=== PATIENT | female | born 2005 | race African-American/Black ===

== ENCOUNTER 2023-10-15 13:34 | Outpatient (OUT) | payer MEDICAID, SELFPAY ==
--- NOTE | 2023-10-15 13:36 | US_ITS ---
[address] [address] Patient Name: CHAD DOWNING MRN: [id number] date: 2005 Sex: F Assigned Patient Location: Current Patient Location: Accession/Order Number: [id number] Exam Date: 10/15/2023 13:36 Report Date: 10/15/2023 15:48 At the request of: KAUR MONAHAN Procedure: US OB growth EXAMINATION: US OB growth HISTORY: IUGR COMPARISON: No relevant comparison available. FINDINGS: Heart Rate: 140.0 bpm Number: 1.0 Position: CEPHALIC Amniotic Fluid Volume: 13.3 cm Maximum Vertical Pocket: 4.8 cm BIOMETRY: BPD: 8.6 cm cm; 34 weeks 4 days; 56% HC: 31.0 cmcm; 34 weeks 5 days ; 23% AC: 30.1 cm cm; 34 weeks 0 days; 48% FL: 6.6 cm cm; 34 weeks 1 days; 38% EFW: 2372.1 grams; 41% FL/AC: 22.1 FL/BPD: 77.6 HC/AC: 1.0 GESTATIONAL AGE: Age by EDC: 34 weeks 2 days ASHWINI by EDC: 11/24/2023 Age by US: 34 weeks 3 days ASHWINI by US: 11/23/2023 US/US OB growth IMPRESSION: 1. Single live intrauterine with growth detailed above. Electronically authenticated by: NALINI MAHARAJ Date: 10/15/2023 15:48
== END 2023-10-15 13:35 | disposition home or self-care (01) ==
LOC: US 13:35
PROVIDERS: Visit Provider Obstetrics & Gynecology
DX: O26.843 Uterine size-date discrepancy, third trimester (principal); Z3A.34 34 weeks gestation of pregnancy
CPT/HCPCS: 76816

== ENCOUNTER 2023-10-29 20:09 | Outpatient (REF) | payer MEDICAID, SELFPAY | END 2023-10-29 20:10 | disposition home or self-care (01) | LOC: LAB 20:09 | PROVIDERS: Visit Provider Physician Assistant | DX: Z34.93 Encounter for supervision of normal pregnancy, unspecified, third trimester (principal) | CPT/HCPCS: 87081 ==

== ENCOUNTER 2023-10-31 22:35 | Observation (INO) | payer MEDICAID, SELFPAY ==
[2023-10-31 22:50] VITALS: BP 106/68; PULSE 100
[2023-10-31 23:01] LABS: Bilirubin Urine NEGATIVE (NEGATIVE); Blood Urine NEGATIVE (NEGATIVE); Clarity Urine CLEAR (CLEAR); Color Urine LT. YELLOW (YELLOW); Glucose Urine UA NEGATIVE (NEGATIVE); Ketones Urine NEGATIVE (NEGATIVE); Leukocyte Esterase Urine SMALL (NEGATIVE); Nitrite Urine NEGATIVE (NEGATIVE); Protein Urine NEGATIVE (NEG/TRACE); Specific Gravity Urine <=1.005 (1.005-1.025); Urobilinogen Urine 0.2 EU/dL (0.2-1.0)
[2023-10-31 23:03] LABS: Urine Microscopic Indicated YES
[2023-10-31 23:09] LABS: Bacteria Urine MODERATE #/HPF (NONE SEEN); Cast Seen? NONE SEEN #/LPF (NONE SEEN); Crystals Seen? None Seen #/HPF (None Seen); Mucus Urine NONE SEEN (NONE SEEN); Squamous Epithelial Cell Urine MODERATE #/LPF (NONE/RARE); Urine Culture Indicated YES
[2023-11-01] MEDS: ZOLPIDEM TARTRATE 5 MG TABLET PO (02:45)
[2023-11-01 02:55] VITALS: BP 108/76; PULSE 88
[2023-11-01 06:05] VITALS: RESP 16; TEMP 37.2
--- NOTE | 2023-11-01 07:35 | W.PC.ACHO ---
Registration Status: ADM LAUREANO Primary Language: Armenian Preferred Language: Armenian Report received from Leslie Victor RN. Active Medications Generic Name Dose Route Start Last Admin Trade Name Freq PRN Reason Stop Dose Admin Zolpidem Tartrate 5 mg 10/31/23 23:29 11/01/23 02:45 Zolpidem Tartrate 5 Mg Tablet PO 5 mg HS PRN Administration Sleep Neurology Patient orientation (short person,place,time,situation list)
[2023-11-01 09:05] VITALS: RESP 16
[2023-11-01 09:08] VITALS: BP 110/69; PULSE 89; TEMP 36.6
== END 2023-11-01 12:27 | disposition home or self-care (01) ==
PROVIDERS: Admitting Provider Obstetrics & Gynecology; Visit Provider Obstetrics & Gynecology
DX: O26.893 Other specified pregnancy related conditions, third trimester (principal); M54.9 Dorsalgia, unspecified; Z3A.36 36 weeks gestation of pregnancy
CPT/HCPCS: 59025; 81001; 87086; G0378; G0379

== ENCOUNTER 2023-11-06 00:11 | Inpatient (IN) | payer MEDICAID, SELFPAY ==
[2023-11-05 16:52] VITALS: BP 122/72; PULSE 100
[2023-11-05 16:53] VITALS: BP 112/73; PULSE 92
[2023-11-05 17:18] LABS: Bilirubin Urine NEGATIVE (NEGATIVE); Blood Urine NEGATIVE (NEGATIVE); Clarity Urine CLEAR (CLEAR); Color Urine LT. YELLOW (YELLOW); Glucose Urine UA NEGATIVE (NEGATIVE); Ketones Urine 15 mg/dL (NEGATIVE); Leukocyte Esterase Urine TRACE (NEGATIVE); Nitrite Urine NEGATIVE (NEGATIVE); Protein Urine NEGATIVE (NEG/TRACE); Urine Microscopic Indicated YES; Urobilinogen Urine 0.2 EU/dL (0.2-1.0); pH Urine 6.5 (5.0-9.0)
[2023-11-05 17:23] LABS: Bacteria Urine NONE SEEN #/HPF (NONE SEEN); Cast Seen? NONE SEEN #/LPF (NONE SEEN); Crystals Seen? None Seen #/HPF (None Seen); Mucus Urine NONE SEEN (NONE SEEN); RBC Urine NONE SEEN #/HPF (0-2); Squamous Epithelial Cell Urine MODERATE #/LPF (NONE/RARE); Urine Culture Indicated NO; WBC Urine 0-2 #/HPF (NONE SEEN)
[2023-11-05 18:42] VITALS: RESP 16; TEMP 36.9
[2023-11-05 19:41] VITALS: BP 99/64; PULSE 82
--- NOTE | 2023-11-05 20:14 | W.PC.ACHO ---
Registration Status: REG OUT Primary Language: Preferred Language: Report received from Leslie Desai RN.
[2023-11-06] VITALS (74 sets, daily range): BP systolic 87–141; BP diastolic 50–97; PULSE 69–129; RESP 8–24; TEMP 36.1–36.6; O2SAT 98–100
[2023-11-06 00:53] LABS: Amphetamine Screen Urine NEGATIVE (NEGATIVE); Barbiturates Screen Urine NEGATIVE (NEGATIVE); Benzodiazepines Screen Urine NEGATIVE (NEGATIVE); Buprenorphine Screen Urine NEGATIVE (NEGATIVE); Cannabinoid Screen Urine NEGATIVE (NEGATIVE); Cocaine Screen Urine NEGATIVE (NEGATIVE); Methadone Screen Urine NEGATIVE (NEGATIVE); Methamphetamines Screen Urine NEGATIVE (NEGATIVE); Opiate Screen Urine NEGATIVE (NEGATIVE); Oxycodone Screen Urine NEGATIVE (NEGATIVE); Phencyclidine Screen Urine NEGATIVE (NEGATIVE); Tricyclic Antidepressant Urine NEGATIVE (NEGATIVE)
[2023-11-06 02:11] LABS: Hematocrit 30.5 % (36.0-48.0); Hemoglobin 9.6 g/dL (12.0-16.0); Mean Corpuscular HGB Conc 31.5 g/dL (29.9-35.2); Mean Corpuscular Hemoglobin 23.5 pg (26.7-34.0); Mean Corpuscular Volume 74.8 fL (81.0-99.0); Mean Platelet Volume 10.3 fL (9.5-13.5); Platelet Count 334 10^3/uL (150-450); Red Blood Count 4.08 10^6/uL (4.20-5.40); Red Cell Distribution Width 15.9 % (11.0-15.0); White Blood Count 14.4 10^3/uL (4.0-11.0)
--- NOTE | 2023-11-06 07:31 | W.PC.ACHO ---
Registration Status: ADM IN Primary Language: Vincentian Preferred Language: Vincentian Report given to Uday Gunn RN. Active Medications Generic Name Dose Route Start Last Admin Trade Name Freq PRN Reason Stop Dose Admin Carboprost Tromethamine 250 mcg 11/06/23 00:24 Carboprost Tromethamine 250 Mcg/Ml 1 Ml Vial IM 11/08/23 00:24 Q15M PRN Bleeding Sodium Chloride 1,000 mls @ 125 mls/hr 11/06/23 00:30 Sodium Chloride 0.9% 1,000 Ml IV .Q8H MARYANNE Oxytocin/Sodium Chloride 20 units in 1,000 mls @ 125 mls/hr 11/06/23 00:30 Pitocin 20 Unit/1,000 Ml-Ns IV 11/06/23 08:29 Q8H MARYANNE Lidocaine 1 ml 11/06/23 00:24 Lidocaine Hcl 1% 200 Mg/20 Ml Mdv INJ ONCE PRN Pain Lidocaine 5 ml 11/06/23 00:24 Lidocaine Viscous 2% 15 Ml Solution TOPICAL ONCE PRN Pain Methylergonovine Maleate 0.2 mg 11/06/23 00:24 Methylergonovine Maleate 0.2 Mg/Ml Ampule IM 11/08/23 00:24 ONCE PRN Uterine Contractility/Contract Methylergonovine Maleate 0.2 mg 11/06/23 00:24 Methylergonovine Maleate 0.2 Mg Tablet PO 11/08/23 00:24 Q4H PRN Uterine Contractility/Contract Misoprostol 600 mcg 11/06/23 00:24 Misoprostol 100 Mcg Tablet PO 11/08/23 00:24 ONCE PRN Uterine Bleeding Misoprostol 800 mcg 11/06/23 00:24 Misoprostol 100 Mcg Tablet SL 11/08/23 00:24 ONCE PRN Uterine Bleeding Misoprostol 1,000 mcg 11/06/23 00:24 Misoprostol 100 Mcg Tablet AR 11/08/23 00:24 ONCE PRN Uterine Bleeding Ondansetron HCl 4 mg 11/06/23 00:24 Ondansetron Pf 4 Mg/2 Ml Vial IV Q6H PRN Nausea And Vomiting Ondansetron HCl 4 mg 11/06/23 00:24 Ondansetron 4 Mg Rapdis Tablet SL Q6H PRN Nausea And Vomiting Oxytocin 10 unit 11/06/23 00:24 Oxytocin 10 Unit/Ml Vial IM 11/08/23 00:24 ONCE PRN Bleeding Diet Category Date Time Status Regular Consistency Diet Diet 11/06/23 00:26 Active Consults Category Date Time Status Consult to Anesthesiology Routine Cons 11/06/23 Ordered Consult to Metal Bonding Helper Routine Cons 11/06/23 Ordered IV Insertion/Site Date of IV Line Insertion [ 11/06/23 Short PIV (<1.75 in) 20g left Hand] IV Insertion Time [Short PIV ( 00:45 <1.75 in) 20g left Hand] Neurology Patient orientation (short person,place,time,situation list) Respiratory Oxygen Delivery Method Room Air
[2023-11-06] MEDS: 0.9 % SODIUM CHLORIDE 1,000 ML 125 ML IV ×3 (07:50→18:18)
[2023-11-06] MEDS: FENTANYL CITRATE/PF 100 MCG/2 ML VIAL EPIDURAL ×2 (10:09)
[2023-11-06] MEDS: LIDOCAINE HCL 2% PF 100 MG/5 ML VIAL INJ (10:10)
[2023-11-06] MEDS: ROPIVACAINE HCL/PF 400 MG/200 ML PREMIX 6 MG EPIDURAL (10:10)
[2023-11-06] MEDS: OXYTOCIN 10 UNIT in 0.9 % SODIUM CHLORIDE 500 ML 6.012 UNIT IV (12:10)
[2023-11-06] MEDS: CITRIC ACID/SODIUM CITRATE 30 ML SOLUTION ORACIT SHOHL'S SOLN PO (19:49)
[2023-11-06] MEDS: FAMOTIDINE/PF 20 MG/2 ML VIAL IV (19:50)
[2023-11-06] MEDS: CEFAZOLIN SODIUM/DEXTROSE,ISO 2 GM/50 ML PIGGYBACK IV (20:13)
--- NOTE | 2023-11-06 21:14 | PM.ONB ---
Brief Operative Note Date of procedure: 11/06/23 Pre-op diagnosis: iup at 37wks, active labor, failure to dilate, failure to descend, cpd Post-op diagnosis: same as pre-op Procedure: NAME OF PROCEDURE: [ section ] PROCEDURE: Patient was taken back to the Operating Room where she was given a spinal anesthesia with Duramorph without difficulty. She was prepped and draped in the normal sterile fashion. A Pfannenstiel skin incision was then made 2 cm above the symphysis pubis and carried down to underlying rectus fascia using a Bovie. The fascia was incised in the midline and extended laterally using Basurto scissors. Two Olivia clamps were placed on the superior aspect of the fascia and dissected off the underlying rectus muscles. The same was performed on the inferior aspect as well. The muscles were then in the midline. Peritoneum was identified and entered bluntly. The peritoneum was then extended superiorly and inferiorly with good visualization of the bladder. The bladder blade was inserted. A low transverse incision was made on the patient's uterus and extended laterally digitally. The infant was then delivered atraumatically after the bladder blade was removed in the cephalic position. The cord was clamped and cut. Cord blood was obtained. The infant was handed off to awaiting team. The patient's placenta was spontaneously delivered. The uterus was then exteriorized. The uterus was cleared of all clots and debris. The bladder blade was reinserted. The patient's uterine incision was closed using #0 Vicryl in a running lock fashion. Excellent hemostasis was assured. The uterus was then returned to the patient's abdomen. The patient's abdomen was copiously irrigated using warm saline. Peritoneal gutters were cleared of all clots and debris. Again excellent hemostasis was assured. The patient's peritoneum was closed using 3-0 Vicryl in a running fashion. The patient's fascia was closed using #0 Vicryl in a running fashion. The patient's skin was closed using 4-0 Vicryl subcuticularly. The patient tolerated the procedure well. Sponge, lap, and needle counts were correct x2. The patient was taken to the Recovery Room in stable condition. Anesthesia: ARLEEN Surgeon: Vinny Sandoval Barrel Liner: Sharlene Wheeler Estimated blood loss (mL): 575 Pathology: none sent Condition: stable Disposition: PACU Urinary Catheter Management Urinary Catheter Management Urethral: Cath placed during this visit: yes Urethral indwelling: No Insertion date: 11/06/23 Insertion time: 10:45
--- NOTE | 2023-11-06 21:15 | PM.OBPRCCS ---
Procedure Pre-op/Post-op diagnoses: Pre-Op/Post-Op Diagnoses Operation Date: 11/06/23 17:45 <No data on this case meets the specified criteria> Procedure: Procedures Operation Date: 11/06/23 17:45 Actual Procedure Side Surgeon p Not Applicable Vinny Sandoval DO Logging Specialist: Sharlene Wheeler Estimated blood loss (mL): 575 Disposition: floor Anesthesia type: Epidural
[2023-11-06] MEDS: LACTATED RINGER'S SOLUTION 1,000 ML 50 ML IV (21:20)
[2023-11-06] MEDS: OXYTOCIN/0.9 % SODIUM CHLORIDE 20 UNITS/1,000 ML PLAST..BAG 125 UNIT IV (21:39)
--- NOTE | 2023-11-06 21:52 | PC.NURSE ---
with paslpation of fundus causes pain to elevate a bit but calms down after palpating
[2023-11-07] VITALS (7 sets, daily range): BP systolic 100–133; BP diastolic 63–78; PULSE 76–78; RESP 14–16; TEMP 36.2–37.2
--- NOTE | 2023-11-07 01:15 | PC.NURSE ---
Jaky-care performed and linens changed at this time.
[2023-11-07] MEDS: CEFAZOLIN SODIUM/DEXTROSE,ISO 2 GM/50 ML PIGGYBACK IV (02:01)
[2023-11-07] MEDS: KETOROLAC TROMETHAMINE 30 MG/ML VIAL IVP ×2 (03:11→12:48)
--- NOTE | 2023-11-07 06:00 | W.PC.ACHO ---
Registration Status: ADM IN Primary Language: Citizen Of [place] Preferred Language: Citizen [place] Report given to Uday Gunn RN. Active Medications Generic Name Dose Route Start Last Admin Trade Name Freq PRN Reason Stop Dose Admin Al Hydroxide/Mg Hydroxide 2,400 mg 11/06/23 21:16 Magnesium Hydroxide 2,400 Mg/10 Ml Oral.Susp PO Q6H PRN Dyspepsia Carboprost Tromethamine 250 mcg 11/06/23 00:24 Carboprost Tromethamine 250 Mcg/Ml 1 Ml Vial IM 11/08/23 00:24 Q15M PRN Bleeding Diphenhydramine HCl 25 mg 11/06/23 21:16 Diphenhydramine Hcl 50 Mg/Ml (1ml) Vial IV 11/07/23 21:17 Q6H PRN Itching Docusate Sodium 100 mg 11/07/23 09:00 Docusate Sodium 100 Mg Capsule PO BID MARYANNE Ephedrine Sulfate 5 mg 11/06/23 08:01 Ephedrine Sulfate 50 Mg/Ml Vial IV 11/07/23 08:01 Q5M PRN Blood Pressure - Low Fentanyl Citrate 100 mcg 11/06/23 08:01 11/06/23 10:09 Fentanyl Citrate/Pf 100 Mcg/2 Ml Vial EPIDURAL 100 mcg ONCE PRN Administration epidural Fentanyl Citrate 100 mcg 11/06/23 08:01 11/06/23 10:09 Fentanyl Citrate/Pf 100 Mcg/2 Ml Vial EPIDURAL 100 mcg ONCE PRN Administration epidural Ropivacaine/Sodium Chloride 400 mg in 200 mls @ 6 mls/hr 11/06/23 08:15 11/06/23 10:10 Naropin 0.2% 400 Mg/200 Ml Bag EPIDURAL 6 mls/hr Q24H MARYANNE Administration Oxytocin 10 unit/ Sodium 501 mls @ 6.012 mls/hr 11/06/23 12:00 11/06/23 19:35 Chloride IV 0 milliunit/min Q24H MARYANNE 0 mls/hr Infusion 2 MILLIUNIT/MIN Sodium Chloride 1,000 mls @ 125 mls/hr 11/06/23 21:30 Sodium Chloride 0.9% 1,000 Ml IV .Q8H MARYANNE Lactated Ringer's 1,000 mls @ 50 mls/hr 11/06/23 21:30 11/06/23 21:20 Lactated Ringers IV 50 mls/hr .Q20H MARYANNE Administration Ibuprofen 800 mg 11/06/23 21:16 Ibuprofen 400 Mg Tablet PO Q8H PRN Pain Ketorolac Tromethamine 30 mg 11/06/23 21:16 11/07/23 03:11 Ketorolac Tromethamine 30 Mg/Ml Vial IVP 11/08/23 21:17 30 mg Q6H PRN Administration Pain Lidocaine 1 ml 11/06/23 00:24 Lidocaine Hcl 1% 200 Mg/20 Ml Mdv INJ ONCE PRN Pain Lidocaine 5 ml 11/06/23 00:24 Lidocaine Viscous 2% 15 Ml Solution TOPICAL ONCE PRN Pain Lidocaine 5 ml 11/06/23 08:01 11/06/23 10:10 Lidocaine Hcl 2% Pf 100 Mg/5 Ml Vial INJ 11/07/23 08:01 5 ml Q1H PRN Administration Pain Methylergonovine Maleate 0.2 mg 11/06/23 00:24 Methylergonovine Maleate 0.2 Mg/Ml Ampule IM 11/08/23 00:24 ONCE PRN Uterine Contractility/Contract Methylergonovine Maleate 0.2 mg 11/06/23 00:24 Methylergonovine Maleate 0.2 Mg Tablet PO 11/08/23 00:24 Q4H PRN Uterine Contractility/Contract Misoprostol 600 mcg 11/06/23 00:24 Misoprostol 100 Mcg Tablet PO 11/08/23 00:24 ONCE PRN Uterine Bleeding Misoprostol 800 mcg 11/06/23 00:24 Misoprostol 100 Mcg Tablet SL 11/08/23 00:24 ONCE PRN Uterine Bleeding Misoprostol 1,000 mcg 11/06/23 00:24 Misoprostol 100 Mcg Tablet NE 11/08/23 00:24 ONCE PRN Uterine Bleeding Nalbuphine HCl 10 mg 11/06/23 21:16 Nalbuphine Hcl 10 Mg/Ml Ampule IV 11/07/23 21:17 Q3H PRN Itching Naloxone HCl 0.4 mg 11/06/23 08:01 Naloxone Hcl 0.4 Mg/Ml Vial IV 11/07/23 08:01 ONCE PRN Opioid Reversal Ondansetron HCl 4 mg 11/06/23 21:16 Ondansetron Pf 4 Mg/2 Ml Vial IV Q6H PRN Nausea And Vomiting Ondansetron HCl 4 mg 11/06/23 21:16 Ondansetron 4 Mg Rapdis Tablet PO Q6H PRN Nausea And Vomiting Oxycodone/Acetaminophen 2 tab 11/06/23 21:16 Oxycodone Hcl/Acetaminophen 5mg/325mg PO Q4H PRN Pain Scale 7-10 Oxycodone/Acetaminophen 1 tab 11/06/23 21:16 Oxycodone Hcl/Acetaminophen 5mg/325mg PO Q4H PRN Pain Scale 4-6 Oxytocin 10 unit 11/06/23 00:24 Oxytocin 10 Unit/Ml Vial IM 11/08/23 00:24 ONCE PRN Bleeding Senna 17.2 mg 11/06/23 20:00 Sennosides 8.6 Mg Tablet PO QHS PRN Constipation Simethicone 80 mg 11/06/23 21:16 Simethicone 80 Mg Tab.Chew PO QID PRN Abdominal Distention Diet Category Date Time Status Regular Consistency Diet Diet 11/06/23 21:16 Active Respiratory Pulse Oximetry 98 Pulse Oximetry 98 Pulse Oximetry 98 Pulse Oximetry 99 Pulse Oximetry 100 Pulse Oximetry 98 Pulse Oximetry 100 Pulse Oximetry 100 Pulse Oximetry 100 Pulse Oximetry 100 Oxygen Delivery Method Room Air Oxygen Delivery Method Room Air Oxygen Delivery Method Room Air Oxygen Delivery Method Room Air Oxygen Delivery Method Room Air Oxygen Delivery Method Room Air Catheter Urinary Catheter Date of 11/06/23 Insertion [Urethral] Urinary Catheter Date of 11/06/23 Insertion [Urethral] Urinary Catheter Time of 10:45 Insertion [Urethral] Urinary Catheter Time of 10:45 Insertion [Urethral]
[2023-11-07 06:52] LABS: Basophils Percent Auto 0.2 % (0.2-2.0); Hematocrit 28.3 % (36.0-48.0); Hemoglobin 8.7 g/dL (12.0-16.0); Immature Granulocytes Abs Auto 0.16 10^3/uL (0.00-0.03); Immature Granulocytes Pct Auto 0.7 % (0.0-0.5); Lymphocytes Absolute Auto 1.8 10^3/uL (1.2-3.8); Lymphocytes Percent Auto 8.4 % (20.5-60.0); Mean Corpuscular HGB Conc 30.7 g/dL (29.9-35.2); Mean Corpuscular Hemoglobin 23.3 pg (26.7-34.0); Mean Corpuscular Volume 75.7 fL (81.0-99.0); Mean Platelet Volume 10.1 fL (9.5-13.5); Monocytes Absolute Auto 1.3 10^3/uL (0.3-0.8); Monocytes Percent Auto 5.8 % (1.7-12.0); Neutrophils Absolute Auto 18.7 10^3/uL (1.4-6.5); Neutrophils Percent Auto 84.9 % (43.0-75.0); Platelet Count 300 10^3/uL (150-450); Red Blood Count 3.74 10^6/uL (4.20-5.40); Red Cell Distribution Width 16.1 % (11.0-15.0)
[2023-11-07] MEDS: DOCUSATE SODIUM 100 MG CAPSULE PO ×2 (08:58→20:35)
[2023-11-07] MEDS: IBUPROFEN 400 MG TABLET 800 MG PO (19:21)
[2023-11-07] MEDS: OXYCODONE HCL/ACETAMINOPHEN 5MG/325MG 2 TAB PO (20:34)
[2023-11-08] MEDS: IBUPROFEN 400 MG TABLET 800 MG PO ×2 (04:02→15:49)
[2023-11-08 09:22] VITALS: BP 108/64; PULSE 82
[2023-11-08] MEDS: OXYCODONE HCL/ACETAMINOPHEN 5MG/325MG 2 TAB PO ×3 (09:22→20:21)
[2023-11-08] MEDS: DOCUSATE SODIUM 100 MG CAPSULE PO ×2 (09:23→20:21)
[2023-11-08 09:24] VITALS: TEMP 36.6
--- NOTE | 2023-11-08 09:39 | PM.OBPN ---
OB - PN: Subj Subjective Patient comments: no complaints and flatus present Exam Narrative Exam Narrative: patient is 2 day post op section . at the time I rounded she rates her pain a 10/10. RN in the room at this time and going to medicate her for pain. Constitutional Vital Signs, click to edit/add: Last Vital Signs Temp 97.9 F 11/08/23 09:24 Pulse 82 11/08/23 09:22 Resp 16 11/07/23 23:19 BP 108/64 11/08/23 09:22 Pulse Ox 98 11/06/23 22:05 O2 Del Method Room Air 11/07/23 16:31 Common normals: no apparent distress and oriented x3 HENMT Common normals: normocephalic Eye Common normals: EOMs intact bilaterally Neck & C-Spine Common normals: full ROM Lymph Lymphatic: no lymphadenopathy noted Respiratory Common normals: normal respiratory effort Auscultation: clear to auscultation bilaterally Cardio Common normals: regular rate and regular rhythm Rhythm: regular rhythm GI Common normals: Normal to inspection, nondistended, normoactive bowel sounds present, soft to palpation and non-tender Auscultation: normoactive bowel sounds Palpation: soft Common normals: no CVA tenderness Back & Pelvis Common normals: no CVA tenderness Extremity Common normals: normal to inspection Neuro Common normals: oriented x3 Sensorium/orientation: awake, alert, oriented to person, oriented to place and oriented to time Psych Common normals: thought process normal Urinary Catheter Management Urinary Catheter Management Urethral: Cath placed during this visit: yes Urethral indwelling: No Insertion date: 11/06/23 Insertion time: 10:45 OB - PN: A/P Plan - day: 2 Plan: routine postop care Time Spent with Patient Time: Total time spent is greater than 50% in coordination of care (as documented) at patient's floor/unit and/or counseling patient: Total time spent with greater than 50% in coordination of care (as documented) at patient's floor/unit and/or counseling patient: less than 15 minutes
[2023-11-08 09:44] VITALS: RESP 16
[2023-11-08 10:08] LABS: Hematocrit 27.6 % (36.0-48.0); Hemoglobin 8.4 g/dL (12.0-16.0); Mean Corpuscular HGB Conc 30.4 g/dL (29.9-35.2); Mean Corpuscular Hemoglobin 23.1 pg (26.7-34.0); Mean Corpuscular Volume 75.8 fL (81.0-99.0); Mean Platelet Volume 9.5 fL (9.5-13.5); Platelet Count 293 10^3/uL (150-450); Red Blood Count 3.64 10^6/uL (4.20-5.40); Red Cell Distribution Width 16.4 % (11.0-15.0); White Blood Count 19.7 10^3/uL (4.0-11.0)
--- NOTE | 2023-11-08 16:25 | PC.NURSE ---
pt states she is passing gas but feels like there is some trapped gas . discussed need to ambulate in hallway. will give simethicone.
[2023-11-08 16:33] VITALS: BP 118/65; PULSE 95
[2023-11-08 16:34] VITALS: RESP 16; TEMP 37.6
[2023-11-08] MEDS: SIMETHICONE 80 MG TAB.CHEW PO (16:52)
[2023-11-08 23:27] VITALS: BP 113/66; PULSE 82; RESP 16; TEMP 36.9
[2023-11-09] MEDS: IBUPROFEN 400 MG TABLET 800 MG PO ×2 (01:03→08:58)
[2023-11-09] MEDS: OXYCODONE HCL/ACETAMINOPHEN 5MG/325MG 1 TAB PO (01:08)
[2023-11-09 08:58] VITALS: BP 118/78; PULSE 83; RESP 16; TEMP 36.3
[2023-11-09] MEDS: DOCUSATE SODIUM 100 MG CAPSULE PO (08:58)
--- NOTE | 2023-11-09 11:52 | PM.OBPN ---
OB - PN: Subj Subjective Patient comments: no complaints and pain well controlled [place] status: doing well Exam Constitutional Vital Signs, click to edit/add: Last Vital Signs Temp 97.3 F L 11/09/23 08:58 Pulse 83 11/09/23 08:58 Resp 16 11/09/23 08:58 BP 118/78 11/09/23 08:58 Pulse Ox 98 11/06/23 22:05 O2 Del Method Room Air 11/07/23 16:31 Documenting provider has reviewed patient's vital signs: yes Common normals: no apparent distress Respiratory Common normals: clear to auscultation bilaterally Cardio Common normals: regular rate and regular rhythm GI Common normals: Normal to inspection, nondistended, normoactive bowel sounds present Extremity Common normals: no calf tenderness Urinary Catheter Management Urinary Catheter Management Urethral: Cath placed during this visit: yes Urethral indwelling: No Insertion date: 11/06/23 Insertion time: 10:45 OB - PN: A/P Plan - day: 2 Plan: routine postop care, discharge home and follow up 6 weeks Time Spent with Patient Time: Total time spent is greater than 50% in coordination of care (as documented) at patient's floor/unit and/or counseling patient: Total time spent with greater than 50% in coordination of care (as documented) at patient's floor/unit and/or counseling patient: less than 15 minutes
--- NOTE | 2023-12-05 | DS_ITS ---
DISCHARGE DATE: 12/05/2023 PRIMARY DIAGNOSES: 1. Intrauterine at 37 weeks. 2. Active labor. 3. Failure to dilate. 4. Failure to descend. 5. Cephalopelvic disproportion. PROCEDURE: section. HOSPITAL COURSE: As expected. Please see chart for full details. LABORATORY DATA: Please see chart. COMPLICATIONS: None. DISCHARGE CONDITION: Stable. CONSULTATION: Anesthesia. DISCHARGE INSTRUCTIONS: 1. Diet: Regular. 2. Medications: a. Percocet 5/325 one to two p.o. every 4-6 hours p.r.n. pain. b. Motrin 800 one p.o. every 8 hours p.r.n. pain. 3. Followup in one week. Restrictions: Pelvic rest for 6 weeks. No heavy lifting. May drive when pain free and no longer on narcotics. MTDD
== END 2023-11-09 13:15 | disposition home or self-care (01) | DRG 540 ==
LOC: FBCO 00:11 → FBC 00:11
PROVIDERS: Midwife; Admitting Provider Obstetrics & Gynecology; Visit Provider Obstetrics & Gynecology
PROC: 10D00Z1 Extraction of Products of Conception, Low, Open Approach (ICD-10-PCS; CPT 59514; principal; 2023-11-06 17:45)
DX: O32.4XX0 Maternal care for high head at term, not applicable or unspecified (principal); Z3A.37 37 weeks gestation of pregnancy; Z37.0 Single live birth; O62.0 Primary inadequate contractions; O33.9 Maternal care for disproportion, unspecified
CPT/HCPCS: 36415; 59025; 59050; 80307; 81001; 85025; 85027; 86850; 86900; 86901; 94667; 94668; 96374; 96375

== ENCOUNTER 2023-11-12 10:10 | Outpatient (OUT) | payer MEDICAID, SELFPAY ==
[2023-11-12 11:04] VITALS: BP 102/64; PULSE 80; RESP 16; TEMP 36.7
== END 2023-11-12 11:40 | disposition home or self-care (01) ==
LOC: FBCO 10:14
PROVIDERS: Visit Provider Obstetrics & Gynecology
DX: Z39.2 Encounter for routine postpartum follow-up (principal)

== ENCOUNTER 2023-11-15 08:11 | Outpatient (OUT) | payer MEDICAID, SELFPAY ==
--- OUTSIDE RECORDS SUMMARY | 2023-11-15 08:14 | XMS_ITS | CCD ---
Author Name Unknown Address [address] [place] [address] [address] [place] [address] Organization [facility] Care Team Providers Care Load Test Mechanic Name Role Phone SAMAN, MILLICENT Attending Unavailable HERO, KAUR Attending Unavailable SAMAN, MILLICENT Attending Unavailable SAMAN, MILLICENT Attending Unavailable Encounters Encounter Date Encounter Type Care Provider Facility Start: 11-05-2023 End: 11-05-2023 ambulatory MILLICENT SAMAN Not Available Start: 10-29-2023 End: 10-29-2023 ambulatory MILLICENT SAMAN Not Available Start: 10-15-2023 End: 10-15-2023 ambulatory MILLICENT SAMAN Not Available Start: 09-30-2023 End: 09-30-2023 ambulatory KAUR HERO Not Available Payers Date Payer Category Payer Medicaid [id number] 2005 Unknown [id number] 2005 Unknown [id number] 2003 Unknown [id number] 2003 Unknown [id number] Summary Purpose Family History No Family History Records Found Advance Directives No Advanced Directives Records Found Additional Source Comments INFORMATION SOURCE (unrecogn ized section and content) DATE CREATED AUTHOR 11/14/2023 [facility] EPIC FOR RECORDS PERTAINING TO PATIENTS WHO ARE OR HAVE BEEN ENROLLED IN A CHEMICAL DEPENDENCY/SUBSTANCEABUSE PROGRAM, SOME INFORMATION MAY BE OMITTED. This clinical summary was aggregated from multiple sources. Caution should be exercised in using it in the provision of clinical care. This summary normalizes information from multiple sources, and as a consequence, information in this document may materially change the coding, format and clinical context of patient data. In addition, data may be omitted in some cases. CLINICAL DECISIONS SHOULD BE BASED ON THE PRIMARY CLINICAL RECORDS. [facility]. provides no warranty or guarantee of the accuracy or completeness of information in this document.
--- NOTE | 2023-11-15 15:05 | PC.NURSE ---
Family arrives for support. Mom states still uses shield. weighed and discussed outputs. Plenty reported baby wakes to feed by herself every 2-3 hours with occasional 4 hour stretch. Baby to breast per mom. Starts with poor positioning and shallow latch. Shown to pull closer, position face to face and support of breast to assist in latching. Deep latch achieved and mom reports no pain or discomfort with feeding. Smiling and pleased that it doesn't hurt Baby above weight at day 9 of age. Family states able to continue with new skills. Parents both involved and hands on with infant. No further questions or concerns voiced. Leaves ambulatory after feed finished. Aware of MOMs BF group and to call LC as needed.
== END 2023-11-15 08:12 | disposition home or self-care (01) ==
LOC: FBCO 08:12
PROVIDERS: Visit Provider Obstetrics & Gynecology
DX: Z39.1 Encounter for care and examination of lactating mother (principal)
CPT/HCPCS: G0463

== ENCOUNTER 2024-03-10 08:33 | Outpatient (OUT) | payer MEDICAID, SELFPAY ==
--- OUTSIDE RECORDS SUMMARY | 2024-03-10 08:57 | XMS_ITS | CCD ---
Author Organization [facility] Care Team Providers Care Pain Coordinator Name Role Phone SAMAN, MILLICENT Attending Unavailable SAMAN, MILLICENT Attending Unavailable HERO, KAUR Attending Unavailable SAMAN, MILLICENT Attending Unavailable SAMAN, MILLICENT Attending Unavailable Encounters Encounter Date Encounter Type Care Provider Facility Start: 12-09-2023 End: 12-09-2023 ambulatory MILLICENT SAMAN Not Available Start: 11-05-2023 End: 11-05-2023 ambulatory MILLICENT SAMAN Not Available Start: 10-29-2023 End: 10-29-2023 ambulatory MILLICENT SAMAN Not Available Start: 10-15-2023 End: 10-15-2023 ambulatory MILLICENT SAMAN Not Available Start: 09-30-2023 End: 09-30-2023 ambulatory KAUR HERO Not Available Payers Date Payer Category Payer Medicaid [id number] 2005 Unknown [id number] [id number] 2005 Unknown [id number] 2003 Unknown [id number] [id number] 2003 Unknown [id number] 2003 Unknown [id number]. [id number] Summary Purpose Family History No Family History Records Found Advance Directives No Advanced Directives Records Found Additional Source Comments INFORMATION SOURCE (unrecogn ized section and content) DATE CREATED AUTHOR 12/10/2023 [facility] EPIC FOR RECORDS [...] BE BASED ON THE PRIMARY CLINICAL RECORDS. [facility]. provides no warranty or guarantee of the accuracy or completeness of information in this document.
--- NOTE | 2024-03-10 15:09 | PC.NURSE ---
Serenity and 4mo Ai arrive for support. FOB also attends. 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 Infant had been offered bottles of pumped milk after revision as baby was fussy and on/off latching . As of today baby will latch and maintain latch for feed. Does have 2-3 unlatch and re-latch episodes. Baby noted to be gulping and struggles with let down that causes infant to unlatch from breast. Shown to sit baby upright , facing the breast and latching in this position allows baby to maintain latch ad relaxes with feeding. Infant also noted to be very curious , looking around room and different environment. Review normal behaviors of 4 month old . Parents voice understanding. Shown training exercises such as Tug of war and Pressure, Finger Slide, Bottom lip tickle,Gum massage and cheek massage. Parents able to demo confidence in suck training exercises and 4 mo daughter responsive and interactive with parents. Also assessed revision wounds and discussed exercises. Upper lip stretches done and parents state we are not doing stretches that deep Shown proper way to do oral stretches to allow proper healing and gaining full function of tongue.. Parents voice understanding of better stretch exercises for lip and tongue tie wounds. Schedules another visit in 2 weeks for continued support. Family leaves ambulatory without concerns.
== END 2024-03-10 15:25 | disposition home or self-care (01) ==
LOC: FBCO 08:34
PROVIDERS: Visit Provider Obstetrics & Gynecology
DX: Z39.1 Encounter for care and examination of lactating mother (principal)
CPT/HCPCS: G0463

== ENCOUNTER 2024-04-15 08:15 | Outpatient (OUT) | payer MEDICAID, SELFPAY ==
--- OUTSIDE RECORDS SUMMARY | 2024-04-15 08:33 | XMS_ITS | CCD ---
Author Organization [facility] Care Team Providers Care Field Map Editor Name Role Phone SAMAN, MILLICENT Attending Unavailable [...] Available Payers Date Payer Category Payer Medicaid [id number] 2005 Unknown [id number] [id number] 2003 Unknown [id number] .[id number] 2003 Unknown [id number] [id number] [id number] 2003 Unknown [id number] 2.16.840 [id number] 2003 Unknown [id number]. [id number] Summary Purpose Family History No Family History Records Found Advance Directives No Advanced Directives Records Found Additional Source Comments INFORMATION SOURCE (unrecogn ized section and content) DATE CREATED AUTHOR 12/10/2023 [facility] EPIC FOR RECORDS PERTAINING [...] BE BASED ON THE PRIMARY CLINICAL RECORDS. [facility]. provides no warranty or guarantee of the accuracy or completeness of information in this document.
--- NOTE | 2024-04-15 13:21 | PC.NURSE ---
Serinity and 5month old Carmelita arrive for support. Mom reports latches on and off repeated through feed. Infant is very interactive, social and busy during visit. Very interested in new surroundings and distracted easily while trying to nurse. Mom questions latch as baby doesn't want to maintain latch during feed. Discussed healing of tongue and lip revision. Mouth examined and appears to have healed well. infant prefers to bite down and not suck during exam. Very social as coos and expresses vocally. Baby latches and is distracted by LC and parents talking, pulls off and goes back on. Discuss normal growth and development of babies. Offers for baby to be evaluated by a speech pathologist for sucking difficulties. given infor for same as well as when and what to introduce for foods as next phasse of feeding. Parents verbalize understanding and will stay in contact as needed.
== END 2024-04-15 11:30 | disposition home or self-care (01) ==
LOC: FBCO 08:15
PROVIDERS: Visit Provider Obstetrics & Gynecology
DX: Z39.1 Encounter for care and examination of lactating mother (principal)